=== PATIENT | female | born 1960 | race Two or more races ===

== ENCOUNTER 2017-06-10 18:52 | Emergency (ER) | payer MEDICAID ==
[~2017-06-10] VITALS: Ht 165.1 cm; Wt 71.7 kg
[2017-06-10 19:11] VITALS: BP 175/115
[2017-06-10] MEDS ORDERED: KETOROLAC TROMETH 60MG/2ML VIAL IM ONE (20:15)
== END 2017-06-10 21:52 | disposition home or self-care (01) ==
LOC: EDBD 18:52 → ER 19:08
DX: R07.89 Other chest pain (principal); J45.909 Unspecified asthma, uncomplicated; I10 Essential (primary) hypertension; Z88.6 Allergy status to analgesic agent; Z87.891 Personal history of nicotine dependence; E03.9 Hypothyroidism, unspecified; W22.10XA Striking against or struck by unspecified automobile airbag, initial encounter; Y93.89 Activity, other specified; Y99.8 Other external cause status; Y92.89 Other specified places as the place of occurrence of the external cause
CPT/HCPCS: 71020